=== PATIENT | female | born 1985 | race Caucasian/White ===

== ENCOUNTER 2020-11-13 08:53 | Emergency (ER) | payer OTHER, MEDICAID, SELFPAY ==
[2020-11-13] VITALS (10 sets, daily range): BP systolic 111–128; BP diastolic 56–83; PULSE 70–87; RESP 17–20; TEMP 36.4; O2SAT 96–100
--- NOTE | 2020-11-13 09:45 | DI.CT.S_ITS ---
PROCEDURE: CT HEAD/BRAIN WO CON INDICATIONS: confusion TECHNIQUE: Noncontrast 4.5 mm thick angled axial sections acquired from the foramen magnum to the vertex, with coronal and sagittal reformats. For radiation dose reduction, the following was used: automated exposure control, adjustment of mA and/or kV according to patient size. COMPARISON: None. FINDINGS: Image quality: Excellent. CSF spaces: Basal cisterns are patent. No extra-axial fluid collections. Ventricles are normal in size and shape. Brain: No midline shift. No intracranial masses or hemorrhage. Jarvis-white matter interface is normal. Skull and face: Calvarium and visualized facial bones are intact, without suspicious lesions. Sinuses: Visualized sinuses and mastoids are clear. IMPRESSION: No acute intracranial finding. Dictated by: Vern Hilario M.D. on 11/13/2020 at 9:45 Approved by: Vern Hilario M.D. on 11/13/2020 at 9:46
[2020-11-13 11:38] LABS: Add Manual Diff / Slide Review NO; Basophils Absolute Auto 100 /uL (0-100); Eosinophils Absolute Auto 100 /uL (0-450); Eosinophils Percent Auto 1.4 % (2-4); Hematocrit 42.2 % (36-46); Hemoglobin 14.4 g/dL (12.0-16.0); Lymphocytes Absolute Auto 1800 /uL (1100-4500); Lymphocytes Percent Auto 26.8 % (25-40); Mean Corpuscular HGB Conc 34.1 % (30-36); Mean Corpuscular Hemoglobin 30.4 PG (26-34); Mean Corpuscular Volume 89.1 fL (80-100); Monocytes Absolute Auto 500 /uL (0-900); Monocytes Percent Auto 7.4 % (3-14); Neutrophils Absolute Auto 4100 /uL (1500-7000); Neutrophils Percent Auto 63.4 % (50-75); Platelet Count 314 X10^3/uL (150-400); Red Blood Cell Count 4.74 X10^6/uL (4.0-5.2); Red Cell Distribution Width 12.5 % (11.6-14.8); White Blood Cell Count 6.5 X10^3/uL (4.5-11.0)
--- NOTE | 2020-11-13 11:42 | ED.GENADULT ---
HPI - General Adult General Chief complaint: Altered Mental Status Stated complaint: Dizziness/dull sens. rt face/confused x1day Time Seen by Provider: 11/13/20 11:19 Source: patient and other (friend) Mode of arrival: Ambulatory Limitations: no limitations History of Present Illness HPI narrative: This is a 35-year-old female who comes in with complaint of symptoms of feeling dizzy, sort of confused, feeling off balance, feeling nauseated and shaky and cold. Patient states she woke yesterday feeling normal. And then she just was not feeling normal patient states that she noted she was talking the table about 2:00 a.m. in the afternoon when she started feeling short of short of breath. They opened up all the windows and doors and then she started noticing she was having symptoms. She feels clear at this time. She denies any headache but does state that the light seems to bother her in the room. She denies any cough, cold or congestion, no fevers. She feels very chilly in the room but the ambient temperature is low. Patient denies any chest pain or pressure but describes intermittent palpitations. She has been nauseated but not had any vomiting. She does not have any active shortness of breath at this time. No abdominal, back or flank pain. She denies any new GI issues. She denies any urinary symptoms. She denies any new tingling or weakness in her extremities. 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 Patient states she was trying to check her blood glucose yesterday and got Accu-Cheks ranging from 78-80 to 74 and a very short period of time. She states she is not a diabetic. She has a history of migraines, she has been told she may have had a TIA or TIAs in the past but states she never had a workup for it. She was seeing a neurologist to try multiple medications for her migraines but did not have any success. She states she is seeing a headache specialist in [place] but is unsure if they are actually a neurologist. She is not currently on any medications. She has a history of tonsillectomy. She is allergic to trazodone, iodine and shellfish. She quit smoking 3 weeks ago but does still use an occasional cigar, rare alcohol with non the past 1/2 months and no illicit. Her primary care is in [place]. Related Data Home Medications Medication Instructions Recorded Confirmed ACETAMINOPHEN (TYLENOL CHEW) #0 02/15/12 ibuprofen #0 02/15/12 sumatriptan succinate [Imitrex] #0 02/15/12 Allergies Allergy/AdvReac Type Severity Reaction Status Date / Time Trazodone Allergy Unknown Uncoded 11/13/20 09:18 Review of Systems Review of Systems ROS Unobtainable: All systems reviewed & are unremarkable except as noted in HPI and below Patient History Social History Smoking Status: Never smoker Smoking Status: Never smoker alcohol intake frequency: other Exam Narrative Exam Narrative: GEN: well nourished, well appearing female, alert and oriented x mild, patient appears to be in mild distress. No diaphoresis. HEENT: Atraumatic, pupils are equal round reactive to light, mild photophobia, extraocular movements are intact, nares are clear, TMs are clear with no fluid, there is no conjunctival pallor. Throat is clear without any exudates, erythema, tonsillar enlargement or uvular deviation, no meningeal signs. HEART: Regular rate and rhythm without murmur, clicks, rubs. Pulses are equal in upper and lower extremities LUNGS:Lungs clear to auscultation, no wheezes, rales, crackles, chest moves symmetrically, no tachypnea accessory muscle use. ABD:bowel sounds normal, soft, non-tender, no guarding, rebound, rigidity, no masses noted, no hepatosplenomegaly :No CVA tenderness MSCL: Non-tender, no muscle atrophy, muscles strength 5/5 upper and lower extremities, full range of motion NEURO:CN 2-12 intact, patient appreciate some mild difference on the right side of the face in comparison to the left, reflexes 2/4 upper and lower extremities. finger nose finger test normal, heel leach test normal SKIN: No rash, erythema or skin changes noted. Initial Vital Signs Initial Vital Signs: Vital Signs Temperature 97.5 F L 11/13/20 09:11 Pulse Rate 84 11/13/20 09:11 Respiratory Rate 17 11/13/20 09:11 Blood Pressure 111/65 11/13/20 09:11 Pulse Oximetry 100 11/13/20 09:11 Scores GCS [place] coma scale eye opening: Spontaneous [place] coma scale verbal response: Orientated [place] coma scale motor response: Obey commands [place] coma scale total score: 15 NIH Stroke Scale Level of Conciousness: Alert, keenly responsive Ask month/age: Answers both questions correctly. Open/close eyes, close hand: Performs both tasks correctly Best gaze horizontal: Normal Visual breen: No visual loss Facial palsy: Minor paralysis, flattened nasolabial fold, asymmetry on smiling (chronic per patient.) Left arm drift: No drift for full 10 sec Right arm drift: No drift for full 10 sec Left leg drift: No drift for full 5 sec Right leg drift: No drift for full 5 sec Limb ataxia: Absent Sensory on face/arms/legs: Mild to moderate sensory loss, can tell touch Best language: No aphasia, normal Dysarthria: Normal Extinction or inattention: No abnormality Total NIH Stroke scale score: 2 Course Orders Ordered: ED Orders 11/13/20 11:31 Complete Blood Count AUTO DIFF Stat Comprehensive Metabolic Panel Stat Ethanol (ETOH) Stat Lactate (Lactic Acid) Stat Partial Thromboplastin Time Stat Prolactin Stat Prothrombin Time INR Stat Thyroid Stimulating Hormone Stat Reevaluation(s) Reevaluation #1: Patient I reviewed her labs and findings today. No clear exact cause for your symptomatology. She saw her neurologist about 6 months ago. Time: 12:40 Vital Signs Vital signs: Vital Signs - 8 hr 11/13/20 11:55 11/13/20 12:14 11/13/20 12:15 Pulse Rate 73 70 Respiratory Rate Blood Pressure 121/56 L Pulse Oximetry 100 96 11/13/20 12:17 11/13/20 12:56 11/13/20 12:58 Pulse Rate 87 Respiratory Rate 20 20 Blood Pressure 128/83 Pulse Oximetry 99 Medical Decision Making Lab Data Lab results reviewed: Yes I reviewed the patient's lab results. Result diagrams: 11/13/20 11:31 11/13/20 11:31 Labs: Lab Results 11/13/20 11/13/20 11/13/20 Range/Units 11:31 11:31 11:31 WBC 6.5 (4.5-11.0) X10^3/uL RBC 4.74 (4.0-5.2) X10^6/uL Hgb 14.4 (12.0-16.0) g/dL Hct 42.2 (36-46) % MCV 89.1 (80-100) fL MCH 30.4 (26-34) PG MCHC 34.1 (30-36) % RDW 12.5 (11.6-14.8) % Plt Count 314 (150-400) X10^3/uL Neut % (Auto) 63.4 (50-75) % Lymph % (Auto) 26.8 (25-40) % Pope % (Auto) 7.4 (3-14) % Eos % (Auto) 1.4 L (2-4) % Baso % (Auto) 1.0 (0-2) % Neut # (Auto) 4100 (0772-4310) /uL Lymph # (Auto) 1800 (2720-4205) /uL Pope # (Auto) 500 (0-900) /uL Eos # (Auto) 100 (0-450) /uL Baso # (Auto) 100 (0-100) /uL PT 12.1 (10.1-12.7) SECONDS INR 1.1 (0.9-1.3) APTT 31 (26.4-36.2) SECONDS Sodium 138 (137-145) mmol/L Potassium 4.1 (3.4-5.1) mmol/L Chloride 106 (98-107) mmol/L Carbon Dioxide 26 (22-32) mmol/L BUN 13 (7-17) mg/dL Creatinine 0.63 (0.52-1.04) mg/dL Estimated GFR > 60.0 (>60) mL/min BUN/Creatinine Ratio 20.6 (6-22) Glucose 90 (70-100) mg/dL Lactate (0.7-2.1) mmol/L Calcium 8.9 (8.4-10.2) mg/dL Total Bilirubin 0.5 (0.2-1.3) mg/dL AST 37 H (14-36) IU/L ALT 36 H (<35) IU/L Alkaline Phosphatase 68 (38-126) U/L Total Protein 6.7 (6.3-8.2) g/dL Albumin 3.8 (3.5-5.0) g/dL Globulin 2.9 (1.7-4.1) g/dL Albumin/Globulin Ratio 1.3 (1.0-2.8) TSH (0.47-4.68) uIU/mL Prolactin 12.7 (3.0-18.6) ng/mL Ethyl Alcohol < 10 ( - 10) mg/dL 11/13/20 11/13/20 Range/Units 11:31 11:31 WBC (4.5-11.0) X10^3/uL RBC (4.0-5.2) X10^6/uL Hgb (12.0-16.0) g/dL Hct (36-46) % MCV (80-100) fL MCH (26-34) PG MCHC (30-36) % RDW (11.6-14.8) % Plt Count (150-400) X10^3/uL Neut % (Auto) (50-75) % Lymph % (Auto) (25-40) % Pope % (Auto) (3-14) % Eos % (Auto) (2-4) % Baso % (Auto) (0-2) % Neut # (Auto) (7502-4601) /uL Lymph # (Auto) (2497-3409) /uL Pope # (Auto) (0-900) /uL Eos # (Auto) (0-450) /uL Baso # (Auto) (0-100) /uL PT (10.1-12.7) SECONDS INR (0.9-1.3) APTT (26.4-36.2) SECONDS Sodium (137-145) mmol/L Potassium (3.4-5.1) mmol/L Chloride (98-107) mmol/L Carbon Dioxide (22-32) mmol/L BUN (7-17) mg/dL Creatinine (0.52-1.04) mg/dL Estimated GFR (>60) mL/min BUN/Creatinine Ratio (6-22) Glucose (70-100) mg/dL Lactate 0.6 L (0.7-2.1) mmol/L Calcium (8.4-10.2) mg/dL Total Bilirubin (0.2-1.3) mg/dL AST (14-36) IU/L ALT (<35) IU/L Alkaline Phosphatase (38-126) U/L Total Protein (6.3-8.2) g/dL Albumin (3.5-5.0) g/dL Globulin (1.7-4.1) g/dL Albumin/Globulin Ratio (1.0-2.8) TSH 1.22 (0.47-4.68) uIU/mL Prolactin (3.0-18.6) ng/mL Ethyl Alcohol ( - 10) mg/dL Point of Care Testing Test Results Negative Urine Dip Bedside Urine Glucose Negative Bedside Urine Bilirubin - Negative Bedside Urine Ketone - Negative Urine Specific [place] 1.015 Bedside Urine Occult Blood - Negative Bedside Urine pH 7.5 Bedside Urine Protein - Negative Bedside Urine Urobilinogen - Negative Bedside Urine Nitrite - Negative Bedside Urine Leukocytes - Negative Esterase Point of care testing: Point of Care Testing Test Results Negative Urine Dip Bedside Urine Glucose Negative Bedside Urine Bilirubin - Negative Bedside Urine Ketone - Negative Urine Specific [place] 1.015 Bedside Urine Occult Blood - Negative Bedside Urine pH 7.5 Bedside Urine Protein - Negative Bedside Urine Urobilinogen - Negative Bedside Urine Nitrite - Negative Bedside Urine Leukocytes - Negative Esterase Imaging Data CT scan - head: Radiologist's Impression: [address] [id number] Scan ReportSigned Patient: Apurva Delgadillo AMR#: [id number]: 1985Acct:[id number]/Sex: 35 / FDate of Service: 11/13/20Loc: EDAccession Number: [id number] Procedure: CT head/brain wo con Ordering Provider: Heide Retana D.O. PROCEDURE: CT HEAD/BRAIN WO CON INDICATIONS: confusion TECHNIQUE: Noncontrast 4.5 mm thick angled axial sections acquired from the foramen magnum to the vertex, with coronal and sagittal reformats. For radiation dose reduction, the following was used: automated exposure control, adjustment of mA and/or kV according to patient size. COMPARISON: None. FINDINGS: Image quality: Excellent. CSF spaces: Basal cisterns are patent. No extra-axial fluid collections. Ventricles are normal in size and shape. Brain: No midline shift. No intracranial masses or hemorrhage. Jarvis-white matter interface is normal. Skull and face: Calvarium and visualized facial bones are intact, without suspicious lesions. Sinuses: Visualized sinuses and mastoids are clear. IMPRESSION: No acute intracranial finding. Dictated by: Vern Hilario M.D. on 11/13/2020 at 9:45 Approved by: Vern Hilario M.D. on 11/13/2020 at 9:46 ECG Data Attestation: I personally reviewed and interpreted this ECG as follows: Prior ECG tracings: not available for review Interpretation: Sinus rhythm rate of 75 NE 122 QRS 86 and QTC of 428. Patient has RSR in lead 3 and V3/V4. No other acute EKG changes appreciated. MDM Narrative Medical decision making narrative: This is a 35-year-old female with 24 hours of symptoms that include feeling dizzy sort of confused which she describes as not remembering her boyfriend was in the house, feeling a little off balance and nauseated. Patient has a history of right facial droop since the age of 18 which she does not believe his worsened today. She does feel like her sensation is a little different on that side. She does not appreciate any migraine today although she has a history of migraines and does appreciate some mild photophobia. Patient has not had any infectious symptoms, she has been afebrile with normal vitals and labs that only show a very mild elevation in her AST/ALT with no other acute changes. Head CT is negative after 24 hours of symptoms. Patient states she did see her neurologist about 6 months ago. She and I discussed short term follow up with her PCP and/or neurologist. We did discuss the differential today which could include several possibilities. Discharge Plan Departure Patient Disposition: Home Clinical Impression: Paresthesia Instructions: DI for Numbness/Tingling Activity Restrictions/Additional Instructions: Follow up with your physician in the next several days for recheck. Call for an appointment. A clear cause of your symptoms was not found today. Your liver enzymes, AST and ALT are very mildly elevated today by 1 point. This is not a likely cause of her symptoms today. Please return for new or worsening symptoms, severe headaches, new vision changes, difficulty with speech, persistent vomiting, new numbness, weakness, and a bit to walk or ambulate or other new or concerning symptoms. Prescriptions: No Action ACETAMINOPHEN (TYLENOL CHEW) Qty: 0 RF: 0 ibuprofen 800 MG tablet Qty: 0 RF: 0 sumatriptan succinate [Imitrex] 6 MG/0.5 ML solution Qty: 0 RF: 0
[2020-11-13 11:50] LABS: INR 1.1 (0.9-1.3); Prothrombin Time 12.1 SECONDS (10.1-12.7)
[2020-11-13 11:52] LABS: PTT Partial Thromboplastin Tim 31 SECONDS (26.4-36.2)
[2020-11-13 11:53] LABS: Alanine Aminotransferase 36 IU/L (<35); Albumin 3.8 g/dL (3.5-5.0); Albumin Globulin Ratio 1.3 (1.0-2.8); Alkaline Phosphatase 68 U/L (38-126); Aspartate Aminotransferase 37 IU/L (14-36); BUN Creatinine Ratio 20.6 (6-22); Bilirubin Total 0.5 mg/dL (0.2-1.3); Blood Urea Nitrogen 13 mg/dL (7-17); Calcium 8.9 mg/dL (8.4-10.2); Carbon Dioxide 26 mmol/L (22-32); Chloride 106 mmol/L (98-107); Estimated Glomerular Filt Rate > 60.0 mL/min (>60); Ethanol (ETOH) < 10 mg/dL; Globulin 2.9 g/dL (1.7-4.1); Glucose 90 mg/dL (70-100); HEMOLYSIS < 15 (0-50); Lactate (Lactic Acid) 0.6 mmol/L (0.7-2.1); Potassium 4.1 mmol/L (3.4-5.1); Sodium 138 mmol/L (137-145); Total Protein 6.7 g/dL (6.3-8.2)
[2020-11-13 12:09] LABS: Prolactin 12.7 ng/mL (3.0-18.6)
[2020-11-13 12:25] LABS: Thyroid Stimulating Hormone 1.22 uIU/mL (0.47-4.68)
== END 2020-11-13 13:04 | disposition home or self-care (01) ==
PROVIDERS: Emergency Provider Emergency Medicine
DX: R20.2 Paresthesia of skin (principal); R06.02 Shortness of breath; R41.0 Disorientation, unspecified; R11.0 Nausea
CPT/HCPCS: 36415; 70450; 80053; 80320; 81003; 81025; 83605; 84146; 84443; 85025; 85610; 85730; 93005; 93010; 99282; 99284